=== PATIENT | male | born 1975 | race Two or more races ===

== ENCOUNTER 2019-05-25 05:37 | Inpatient (IN) | payer MEDICAID ==
[~2019-05-25] VITALS: Ht 175.3 cm; Wt 108.4 kg
[2019-05-25 06:00] VITALS: BP 135/78
--- NOTE | 2019-05-25 06:00 | NUR ---
ADMISSION NOTE NEW DIRECT ADMISSION FROM [facility]. PATIENT WENT INTO [facility] ER WITH CP THAT HAS BEEN ONGOING IN THE EPIGASTRIC REGION FOR 7 DAYS. PATIENT WAS WORKED UP AT [facility] AND FOUND TO HAVE ELEVATED TROPONINS AND IS BEING ADMITTED HERE AT [facility] FOR CP R/O ACS. PATIENT DENIES HAVING ANY CP AT THIS TIME. TELE APPLIED AND PATIENT IS SB WITH PACS. PATIENT ORIENTED TO ROOM POC REVIEWED. ADMISSION INTERVIEW CONDUCTED.
[2019-05-25] MEDS ORDERED: LINA5TAB PO (06:16)
[2019-05-25] MEDS ORDERED: ATOR20TA PO (06:16)
[2019-05-25] MEDS ORDERED: METF-442 PO (06:16)
[2019-05-25] MEDS ORDERED: LISI-607 PO (06:16)
[2019-05-25] MEDS ORDERED: GLIP5TAB13 PO (06:16)
--- NOTE | 2019-05-25 06:50 | NUR ---
dr. stoll paged through exchange to inform of new admission to the floor.
[2019-05-25 07:30] VITALS: BP 137/90
--- NOTE | 2019-05-25 07:58 | NUR ---
CURATOR OF COLLECTIONS OPENING NOTES RECEIVED PT SITTING UPRIGHT IN BED. PT IS A/O X4, AFEBRILE. RESPIRATIONS ARE EVEN AND UNLABORED, NOT IN ANY ACUTE DISTRESS NOTED. PT DENIES ANY PAIN AT THIS TIME, NO C/O SOB, N/V. IV SITE TO LAC INTACT, NO INFILTRATION NOTED. DRESSING KEPT CLEAN AND DRY. SAFETY MEASURES ARE IN PLACE. INSTRUCTED PT TO USE CALL LIGHT WHEN ASSISTANCE IS NEEDED, CALL LIGHT IS LEFT WITHIN REACH. WILL MONITOR THROUGHOUT SHIFT FOR CONTINUITY OF CARE.
[2019-05-25 08:00] VITALS: BP 137/90
[2019-05-25] MEDS ORDERED: ENOXAPARIN SODIUM 100 MG/ML DISP.SYRIN SQ ONE ×2 (09:30→12:00)
[2019-05-25] MEDS: LINAGLIPTIN 5 MG TABLET PO SCH (09:30)
[2019-05-25] MEDS: glipiZIDE 5 MG TABLET PO SCH ×2 (09:30→17:22)
[2019-05-25 10:49] LABS: BASOPHILS % (AUTO) 0.4 % (0.0-2.0); EOSINOPHILS % (AUTO) 2.2 % (0.0-6.0); HEMATOCRIT 41 % (39-51); HEMOGLOBIN 13.7 g/dL (13.5-17.5); LYMPHOCYTES # (AUTO) 1.6 /CMM (0.8-4.8); LYMPHOCYTES % (AUTO) 29.4 % (20.0-44.0); MEAN CORPUSCULAR HGB CONC 33 g/dl (31.0-36.0); MEAN CORPUSCULAR VOLUME 90 fL (80-96); MONOCYTES # (AUTO) 0.4 /CMM (0.1-1.30); MONOCYTES % (AUTO) 7.3 % (2.0-12.0); NEUTROPHILS # (AUTO) 3.4 /CMM (1.8-8.9); NEUTROPHILS % (AUTO) 60.7 % (43.0-81.0); PLATELET COUNT (AUTO) 176 /CMM (150-450); RED BLOOD CELL COUNT(AUTO) 4.58 MIL/uL (4.5-6.0); WHITE BLOOD COUNT (AUTO) 5.5 K/uL (4.3-11.0)
[2019-05-25 11:10] LABS: ALBUMIN 3.3 g/dL (3.4-5.0); BILIRUBIN,TOTAL 0.2 mg/dL (0.2-1.0); CREATININE 0.9 mg/dL (0.6-1.3); MAGNESIUM 1.6 mg/dL (1.8-2.4); PHOSPHORUS 3.2 mg/dL (2.5-4.9); POTASSIUM 4.3 mmol/L (3.5-5.1)
[2019-05-25] MEDS: ASPIRIN 81 MG TAB.CHEW PO SCH (11:33)
[2019-05-25] MEDS: PANTOPRAZOLE 40 MG TABLET.DR PO SCH (11:33)
[2019-05-25] MEDS: ATORVASTATIN 40 MG TABLET PO SCH (11:33)
[2019-05-25] MEDS: LISINOPRIL (5MG) 5 MG TABLET PO SCH (11:33)
[2019-05-25] MEDS: METOPROLOL TARTRATE 50 MG TABLET PO SCH ×2 (11:35→17:23)
--- NOTE | 2019-05-25 11:53 | NUR ---
AUTOMOTIVE DESIGNER NOTES-- CLARIFIED HEPARIN ORDER WITH DR. JENNINGS D/T DR. DE LA CRUZ'S ORDER OF LOVENOX. PER DR. JENNINGS TO D/C HEPARIN AND CONTINUE LOVENOX, NEW ORDER FOR MAGNESIUM SULFATE 2GM IVP. ORDERS READ BACK AND VERIFIED. NOTED AND CARRIED OUT. NOTIFIED JOHN PAUL IN PHARMACY.
[2019-05-25] MEDS ORDERED: Magnesium 1GM/D5W 100ML PREMIX PIGGYBACK IV ONE (12:00)
[2019-05-25] MEDS: Magnesium 1GM/D5W 100ML PREMIX 100 ML IV SCH ×2 (12:10→13:42)
--- NOTE | 2019-05-25 12:35 | NUR ---
TRANSCRIPTION COORDINATOR NOTES-- PT P/U BY RADIOLOGY FOR CT ANGIO IN STABLE CONDITION VIA W/C.
[2019-05-25] MEDS ORDERED: CT SWABBABLE VALVE TRANS SET 1 EA INFUS.SET MC ONE (12:48)
[2019-05-25] MEDS ORDERED: IOHEXOL-350 100 ML VIAL IV ONE (12:48)
[2019-05-25] MEDS ORDERED: IV NS 0.9% 250 ML IV ONE (12:48)
[2019-05-25] MEDS ORDERED: METOPROLOL TARTRATE INJ 5 MG/5 ML AMPUL IVP PRN (13:00)
[2019-05-25] MEDS ORDERED: NITROGLYCERIN 0.4 MG/TAB BOTTLE SL ONE (13:00)
--- NOTE | 2019-05-25 13:24 | NUR ---
WATER MAINTENANCE SUPERVISOR NOTES-- PT CAME BACK FROM RADIOLOGY IN STABLE CONDITION VIA W/C. NO NEW SKIN ISSUES NOTED. IV SITE REMAINS ON LAC G20 INTACT, NO INFILTRATION NOTED. DRESSING KEPT CLEAN AND DRY. WILL CONTINUE TO MONITOR THROUGHOUT SHIFT.
[2019-05-25] MEDS: METFORMIN 500 MG TABLET PO SCH (15:31)
--- NOTE | 2019-05-25 15:31 | NUR ---
PATIENT SUPPORT ASSOCIATE NOTES-- METFORMIN HELD D/T S/P CT ANGIO.
[2019-05-25 16:11] VITALS: BP 115/60
--- NOTE | 2019-05-25 18:23 | NUR ---
CLAM BED LABORER CLOSING NOTES ALL DUE MEDS GIVEN. NEEDS MET AND RENDERED. PT REMAINS A/O X4, AFEBRILE. RESPIRATIONS ARE EVEN AND UNLABORED, NOT IN ANY ACUTE DISTRESS NOTED. PT DENIES ANY PAIN AT THIS TIME, NO C/O SOB, N/V. IV SITE TO LAC/RAC G20 INTACT, NO INFILTRATION NOTED. DRESSING KEPT CLEAN AND DRY. SAFETY MEASURES ARE IN PLACE. REMINDED PT TO USE CALL LIGHT WHEN ASSISTANCE IS NEEDED, CALL LIGHT IS LEFT WITHIN REACH. WILL ENDORSE TO NEXT SHIFT FOR CONTINUITY OF CARE.
--- NOTE | 2019-05-25 19:15 | NUR ---
RN Notes Received patient awake, alert and oriented x4, on room air and tolerated well. Denies any pain and discomfort at this time. Telemonitor reads sinus bradycardia with heart rate at 55. IV access on left AC patent and intact. Plan of care discussed with the patient and verbalized understanding. Kept comfortable and attended. Will continue to monitor.
[2019-05-25 20:00] VITALS: BP 106/72
[2019-05-25] MEDS ORDERED: HEPARIN SODIUM, PORCINE 5000 UNITS/1 ML VIAL SQ SCH (21:00)
[2019-05-25] MEDS: ENOXAPARIN SODIUM 100 MG/ML DISP.SYRIN SQ SCH (21:41)
[2019-05-25 22:00] VITALS: BP 106/72
[2019-05-26] VITALS: BP 116/64
[2019-05-26 04:00] VITALS: BP 126/58
--- NOTE | 2019-05-26 05:38 | NUR ---
RN Notes Patient stable overnight, vital signs stable. Denies chest pain, sob, nausea and vomiting. Tele monitor reads sinus bradycardia with heart rate at 53. EKG done as ordered, Sinus marta. All needs attended. Will continue to monitor.
[2019-05-26] MEDS: METOPROLOL TARTRATE 50 MG TABLET PO SCH ×2 (06:00)
[2019-05-26 06:27] LABS: BASOPHILS % (AUTO) 0.5 % (0.0-2.0); EOSINOPHILS % (AUTO) 2.2 % (0.0-6.0); HEMATOCRIT 40 % (39-51); HEMOGLOBIN 13.3 g/dL (13.5-17.5); LYMPHOCYTES # (AUTO) 1.6 /CMM (0.8-4.8); LYMPHOCYTES % (AUTO) 24.8 % (20.0-44.0); MEAN CORPUSCULAR HGB CONC 33 g/dl (31.0-36.0); MEAN CORPUSCULAR VOLUME 90 fL (80-96); MONOCYTES # (AUTO) 0.5 /CMM (0.1-1.30); MONOCYTES % (AUTO) 8.4 % (2.0-12.0); NEUTROPHILS # (AUTO) 4.2 /CMM (1.8-8.9); NEUTROPHILS % (AUTO) 64.1 % (43.0-81.0); PLATELET COUNT (AUTO) 161 /CMM (150-450); RED BLOOD CELL COUNT(AUTO) 4.49 MIL/uL (4.5-6.0); WHITE BLOOD COUNT (AUTO) 6.5 K/uL (4.3-11.0)
[2019-05-26 06:43] LABS: ALBUMIN 3.1 g/dL (3.4-5.0); BILIRUBIN,TOTAL 0.3 mg/dL (0.2-1.0); CALCIUM, SERUM 8.7 mg/dL (8.5-10.1); CREATININE 0.9 mg/dL (0.6-1.3); MAGNESIUM 1.7 mg/dL (1.8-2.4); PHOSPHORUS 3.2 mg/dL (2.5-4.9); POTASSIUM 4.1 mmol/L (3.5-5.1); TOTAL PROTEIN, SERUM 6.7 g/dL (6.4-8.2)
--- NOTE | 2019-05-26 06:45 | NUR ---
RN Notes Due Metoprolol not given BP 106/63 and HR 54. Will continue to monitor.
[2019-05-26] MEDS: METFORMIN 500 MG TABLET PO SCH (07:30)
--- NOTE | 2019-05-26 07:39 | NUR ---
DISTRICT MANAGER OPENING NOTES RECEIVED PT SITTING UPRIGHT IN BED. PT IS A/O X4, AFEBRILE. RESPIRATIONS ARE EVEN AND UNLABORED, NOT IN ANY ACUTE DISTRESS NOTED. PT DENIES ANY PAIN AT THIS TIME, NO C/O SOB, N/V. IV SITE TO LAC/RAC INTACT, NO INFILTRATION NOTED. DRESSING KEPT CLEAN AND DRY. SAFETY MEASURES ARE IN PLACE. INSTRUCTED PT TO USE CALL LIGHT WHEN ASSISTANCE IS NEEDED, CALL LIGHT IS LEFT WITHIN REACH. WILL MONITOR THROUGHOUT SHIFT FOR CONTINUITY OF CARE.
[2019-05-26 08:00] VITALS: BP 115/68
[2019-05-26] MEDS: ATORVASTATIN 40 MG TABLET PO SCH (08:17)
[2019-05-26] MEDS: PANTOPRAZOLE 40 MG TABLET.DR PO SCH (08:17)
[2019-05-26] MEDS: LISINOPRIL (5MG) 5 MG TABLET PO SCH (08:18)
[2019-05-26] MEDS: ASPIRIN 81 MG TAB.CHEW PO SCH (08:18)
[2019-05-26] MEDS: LINAGLIPTIN 5 MG TABLET PO SCH (08:18)
[2019-05-26] MEDS: glipiZIDE 5 MG TABLET PO SCH (08:18)
[2019-05-26] MEDS: ENOXAPARIN SODIUM 100 MG/ML DISP.SYRIN SQ SCH (08:21)
[2019-05-26] MEDS ORDERED: CARVEDILOL 12.5 MG TABLET PO SCH (09:00)
[2019-05-26 10:04] VITALS: BP 110/51
--- NOTE | 2019-05-26 12:09 | NUR ---
MS RN NOTES-- PT ABLE TO MAKE NEEDS KNOWN. NEEDS MET AND RENDERED. PT DOES NOT APPEAR TO BE IN ANY ACUTE DISTRESS NOTED. WILL CONTINUE TO MONITOR.
[2019-05-26] MEDS: Magnesium 1GM/D5W 100ML PREMIX 100 ML IV SCH ×2 (12:32→13:34)
[2019-05-26] MEDS ORDERED: ASPI-1169 PO (13:35)
[2019-05-26] MEDS ORDERED: PANT40TA2 PO (13:35)
[2019-05-26] MEDS ORDERED: CARV12.52 PO (13:35)
[2019-05-26] MEDS ORDERED: ATOR40TA PO (13:35)
--- NOTE | 2019-05-26 15:08 | NUR ---
MS RN NOTES-- PT WAS SEEN AND EXAMINED BY DR. DICK Aponte/ ORDERS FOR DISCHARGE.
--- NOTE | 2019-05-26 16:00 | NUR ---
MS INDUSTRIAL PARAMEDIC NOTE PT DISCHARGED HOME IN MEDICALLY STABLE CONDITION. PT IS A/O X4, AFEBRILE. RESPIRATIONS ARE EVEN AND UNLABORED, NOT IN ANY ACUTE DISTRESS NOTED. PUPILS ARE REACTIVE TO LIGHT, BILATERAL HAND APPLICATIONS SCIENTIST ARE STRONG AND EQUAL. ABDOMEN IS SOFT AND NONDISTENDED, BOWEL SOUNDS ARE PRESENT IN ALL 4 QUADRANTS UPON AUSCULTATION. DENIES ANY BLADDER DISCOMFORT. IV ACCESS REMOVED, APPLIED PRESSURE AND TOLERATED WELL. NO SKIN ISSUES NOTED. SKIN IS KEPT CLEAN AND DRY, INTACT. EXPLAINED DISCHARGE PAPERWORK TO PT WITH VERBAL AND WRITTEN UNDERSTANDING, INCLUDING INFORMATION RE: INSURANCE AND TO FOLLOW UP. ALL BELONGINGS SENT HOME WITH PT. ACCOMPANIED BY TO PERSONAL VEHICLE OF FRIEND ANDREA. PT LEFT IN MEDICALLY STABLE CONDITION.
== END 2019-05-26 16:00 | disposition home or self-care (01) | DRG 190 ==
LOC: TELE 05:37 → MED 05-26 10:54
PROVIDERS: ADMIT Hospitalist; ATTEND Hospitalist
DX: I21.4 Non-ST elevation (NSTEMI) myocardial infarction (principal); E11.9 Type 2 diabetes mellitus without complications; I10 Essential (primary) hypertension; J45.909 Unspecified asthma, uncomplicated; K21.9 Gastro-esophageal reflux disease without esophagitis; E78.5 Hyperlipidemia, unspecified; G58.9 Mononeuropathy, unspecified; Z87.891 Personal history of nicotine dependence; Z83.3 Family history of diabetes mellitus; Z79.84 Long term (current) use of oral hypoglycemic drugs; Z91.19 Patient's noncompliance with other medical treatment and regimen
CPT/HCPCS: 36415; 71045-TC; 75574; 80053-TC; 80061-TC; 83735-TC; 84100-TC; 84484-TC; 85025-TC; 87081-TC; 93307-TC; G0378; J1650; J3475; J7050; Q9967